=== PATIENT | female | born 1985 | race Caucasian/White ===

== ENCOUNTER 2018-12-31 08:47 | Emergency (ER) | payer MEDICAID ==
[2018-12-31] MEDS: DIPHENHYDRAMINE 25 MG CAP PO (10:07)
[2018-12-31] MEDS: FAMOTIDINE 20 MG TAB PO (10:07)
[2018-12-31] MEDS: METHYLPREDNISOLONE 125 MG INJ IM (10:08)
== END 2018-12-31 11:46 | disposition home or self-care (01) ==
LOC: FTE 08:47
DX: J30.9 Allergic rhinitis, unspecified (principal)
CPT/HCPCS: 81025; 96372; 99284-25